=== PATIENT | male | born 1955 | race Hispanic/Latino ===

== ENCOUNTER 2021-06-17 06:51 | Day surgery (SDC) | payer MEDICARE ==
[2021-06-12 13:31] LABS: BASOPHILS % (AUTO) 0.5 % (0.0-5.0); EOSINOPHILS % (AUTO) 5.7 % (0.0-8.0); HEMATOCRIT 40.9 % (42-54); LYMPHOCYTES % (AUTO) 22.9 % (21.0-51.0); MEAN CORPUSCULAR HEMOGLOBIN 30.9 pg (27.0-33.0); MEAN CORPUSCULAR HGB CONC 31.3 g/dL (32.0-36.0); MEAN CORPUSCULAR VOLUME 98.8 fL (79-99); MONOCYTES % (AUTO) 9.3 % (3.0-13.0); NEUTROPHILS % (AUTO) 61.3 % (40.0-77.0); PLATELET COUNT (AUTO) 244 K/uL (130-400); RED BLOOD CELL COUNT(AUTO) 4.14 MIL/uL (4.50-6.20); RED CELL DISTRIBUTION WIDTH 14.6 % (11.0-15.5); WHITE BLOOD COUNT (AUTO) 6.1 K/uL (4.8-10.8)
[2021-06-12 13:38] LABS: CREATININE 1.3 mg/dL (0.5-1.5); POTASSIUM 4.9 mmol/L (3.5-5.1)
[2021-06-12 14:08] LABS: APPEARANCE,URINE Clear (CLEAR); BILIRUBIN,URINE Moderate (NEGATIVE); COLOR,URINE Dark Yellow (YELLOW); GLUCOSE, URINE (UA) Negative (NEGATIVE); KETONES,URINE Trace mg/dL (NEGATIVE); LEUKOCYTE ESTERASE ,URINE Moderate (NEGATIVE); NITRATE,URINE Negative (NEGATIVE); OCCULT BLOOD,URINE Negative (NEGATIVE); PH,URINE 7.5 (5.0-8.0); PROTEIN,URINE POS 1+ mg/dL (NEGATIVE)
[2021-06-12 14:13] LABS: INR 0.97 (0.85-1.15); PROTHROMBIN TIME 10.6 SEC (9.6-11.6)
[2021-06-12 14:18] LABS: BACTERIA,URINE Rare /HPF (None Seen); MUCUS,URINE Rare LPF (None Seen); RBC,URINE 0-1 /HPF (0-1); SQUAMOUS EPITHELIAL CELL,UR Rare /HPF (0-2)
[2021-06-16 08:36] VITALS: BP 150/65
[~2021-06-17] VITALS: Ht 172.7 cm; Wt 97.2 kg
[2021-06-17] VITALS (11 sets, daily range): BP systolic 128–154; BP diastolic 54–68
[~2021-06-17 06:51] MED LIST: 0.9% NACL 500ML IV.SOLN 500 ML IV SCH; AEC81 PO; ALBU0.63 IH; AMLO-257 PO; CITA-107 PO; FLUT1AER IH; FOLI20CA PO; GABA-529 PO; LISI20TA24 PO; LORA-192 PO; METO-408 PO; MULT-1367 PO; NITR0.4T50 SL; OMEG-148 PO; OMEP40CA21 PO; PRAV40TA3 PO; RANITIDINE PO; RANO10005 PO; TRAM50TA4 PO; UMEC1DIS IH
[2021-06-17] MEDS ORDERED: 0.9%NACL 1000ML 1,000 ML IV ONE (08:33)
[2021-06-17] MEDS ORDERED: HEPARIN 10,000 UNIT/10ML (1,000 UNIT/ML) VIAL ONE (11:53)
[2021-06-17] MEDS ORDERED: LIDOCAINE HCL 400MG/20ML VIAL ONE (11:53)
[2021-06-17] MEDS ORDERED: IOHEXOL-350 50ML VIAL IV ONE (11:53)
[2021-06-17] MEDS ORDERED: IOHEXOL 350 MG/ML 100ML INFUS..BTL IV ONE (11:53)
[2021-06-17] MEDS ORDERED: BIVALIRUDIN 250 MG/VIAL IV ONE (11:53)
[2021-06-17] MEDS ORDERED: NITROGLYCERIN 50MG VIAL IV ONE (11:53)
[2021-06-17] MEDS ORDERED: MIDAZOLAM HCL 1 MG/ML 2ML VIAL ONE (11:58)
[2021-06-17] MEDS ORDERED: GLUCAGON 1MG KIT 1 MG ML IM PRN (13:00)
[2021-06-17] MEDS ORDERED: DEXTROSE 50%-WATER 50 ML DISP.SYRIN IV PRN (13:00)
== END 2021-06-17 16:40 | disposition home or self-care (01) ==
LOC: DAH 06:51
PROVIDERS: ATTEND Internal Medicine Cardiovascular Disease
DX: I25.118 Atherosclerotic heart disease of native coronary artery with other forms of angina pectoris (principal); I10 Essential (primary) hypertension; E78.5 Hyperlipidemia, unspecified; E11.9 Type 2 diabetes mellitus without complications; J44.9 Chronic obstructive pulmonary disease, unspecified; Z95.5 Presence of coronary angioplasty implant and graft; Z79.84 Long term (current) use of oral hypoglycemic drugs; Z79.01 Long term (current) use of anticoagulants; Z79.899 Other long term (current) drug therapy
CPT/HCPCS: 36415; 71045; 80048; 81001; 82948; 85025; 85610; 85730; 87088; 93005; 93458; A4215 ×2; A4216; A4221; A4222; A4223 ×3; A4606; A4663; C1760; C1894; J1644; J3490 ×2; J7030 ×2; Q9965; Q9967; J0583; J2250

== ENCOUNTER → 2021-11-18 | Outpatient (CLI) | payer MEDICARE ==
[~2021-11-18] MED LIST changes: -0.9% NACL 500ML IV.SOLN 500 ML IV SCH
== END ==
LOC: RAH 08:59
PROVIDERS: ATTEND Internal Medicine Gastroenterology
DX: R63.30 Feeding difficulties, unspecified (principal); R13.12 Dysphagia, oropharyngeal phase
CPT/HCPCS: 74230; 92611

== ENCOUNTER 2022-03-11 09:37 | Observation (INO) | payer MEDICARE ==
[~2022-03-11] VITALS: Ht 172.7 cm; Wt 94.3 kg
[2022-03-11 10:13] LABS: BASOPHILS % (AUTO) 0.2 % (0.0-5.0); EOSINOPHILS % (AUTO) 3.1 % (0.0-8.0); HEMATOCRIT 35.5 % (42-54); MEAN CORPUSCULAR HEMOGLOBIN 29.3 pg (27.0-33.0); MONOCYTES % (AUTO) 6.8 % (3.0-13.0); NEUTROPHILS % (AUTO) 68.2 % (40.0-77.0); PLATELET COUNT (AUTO) 251 K/uL (130-400); RED BLOOD CELL COUNT(AUTO) 3.99 MIL/uL (4.50-6.20); RED CELL DISTRIBUTION WIDTH 14.8 % (11.0-15.5); WHITE BLOOD COUNT (AUTO) 5.9 K/uL (4.8-10.8)
[2022-03-11 10:26] LABS: CREATININE 1.1 mg/dL (0.5-1.5); POTASSIUM 3.9 mmol/L (3.5-5.1)
[2022-03-11 10:31] LABS: ALBUMIN 3.3 g/dL (3.5-5.0); TOTAL PROTEIN, SERUM 7.5 g/dL (6.0-8.3)
[2022-03-11] MEDS ORDERED: ASPIRIN 81MG CHEW TAB PO ONE (11:00)
[2022-03-11] MEDS ORDERED: NITROGLYCERIN 1GM OINT 1 INCH/1GM TD ONE (11:00)
[2022-03-11 14:18] LABS: APPEARANCE,URINE CLEAR (CLEAR); BILIRUBIN,URINE SMALL (NEGATIVE); COLOR,URINE YELLOW (YELLOW); GLUCOSE, URINE (UA) NEGATIVE (NEGATIVE); KETONES,URINE 5 mg/dL (NEGATIVE); LEUKOCYTE ESTERASE ,URINE NEGATIVE (NEGATIVE); NITRATE,URINE NEGATIVE (NEGATIVE); OCCULT BLOOD,URINE NEGATIVE (NEGATIVE); PH,URINE 7.5 (5.0-8.0); PROTEIN,URINE NEGATIVE (NEGATIVE)
[2022-03-11] MEDS ORDERED: MORPHINE 2 MG SYG IV PRN (14:30)
[2022-03-11] MEDS ORDERED: ACETAMINOPHEN 325 MG TAB PO PRN (14:30)
[2022-03-11] MEDS ORDERED: LACTULOSE 20 GM/30 ML UDCUP PO PRN (14:30)
[2022-03-11] MEDS ORDERED: ONDANSETRON 4MG INJ IV PRN (14:30)
[2022-03-11 14:53] LABS: BACTERIA,URINE Rare /HPF (None Seen); MUCUS,URINE Few LPF (None Seen); RBC,URINE 0-1 /HPF (0-1); SQUAMOUS EPITHELIAL CELL,UR Rare /HPF (0-2); WBC,URINE 0-1 /HPF (0-1)
[2022-03-11] MEDS: CLOPIDOGREL 75MG TAB PO SCH (15:07)
[2022-03-11] MEDS: NITROGLYCERIN 1GM OINT 1 INCH/1GM TD SCH ×2 (15:07→21:47)
[2022-03-11] MEDS ORDERED: PANT40TA54 PO (16:05)
[2022-03-11 18:45] VITALS: BP 143/59
[2022-03-11 19:01] VITALS: BP 131/59
[2022-03-11] MEDS ORDERED: FAMOTIDINE 20MG VIAL IV SCH (21:00)
[2022-03-11] MEDS: FAMOTIDINE 20MG TAB PO SCH (21:44)
[2022-03-11] MEDS: ENOXAPARIN SODIUM 100 MG/1 ML SQ SCH (21:47)
[2022-03-11 23:19] VITALS: BP 133/59
[2022-03-12 03:54] VITALS: BP 115/57
[2022-03-12] MEDS: NITROGLYCERIN 1GM OINT 1 INCH/1GM TD SCH (06:35)
[2022-03-12 06:54] VITALS: BP 115/66
[2022-03-12] MEDS ORDERED: NITROGLYCERIN 0.4 MG SL TAB SL PRN (08:00)
[2022-03-12] MEDS ORDERED: NITROGLYCERIN 1GM OINT 1 INCH/1GM TD SCH (08:00)
[2022-03-12] MEDS ORDERED: BISA5TAB12 PO (08:10)
[2022-03-12] MEDS: CLOPIDOGREL 75MG TAB PO SCH (08:38)
[2022-03-12] MEDS: FAMOTIDINE 20MG TAB PO SCH (08:41)
[2022-03-12] MEDS: ENOXAPARIN SODIUM 100 MG/1 ML SQ SCH (08:42)
[2022-03-12] MEDS ORDERED: AMLODIPINE 5 MG TAB PO SCH (09:00)
[2022-03-12] MEDS ORDERED: FOLIC ACID 1 MG TABLET PO SCH (09:00)
[2022-03-12] MEDS ORDERED: TRAMADOL HCL 50 MG TABLET PO SCH (09:00)
[2022-03-12] MEDS ORDERED: MULTIVITAMIN TABLET PO SCH (09:00)
[2022-03-12] MEDS ORDERED: ASPIRIN 81MG CHEW TAB PO SCH (09:00)
[2022-03-12] MEDS ORDERED: GABAPENTIN 300 MG CAPSULE PO SCH (09:00)
[2022-03-12] MEDS ORDERED: PANTOPRAZOLE 40 MG TAB DR PO SCH (09:00)
[2022-03-12] MEDS ORDERED: FISH OIL 1000 MG/CAP PO SCH (09:00)
[2022-03-12] MEDS ORDERED: LISINOPRIL 20 MG TABLET PO SCH (09:00)
[2022-03-12] MEDS ORDERED: RANOLAZINE 500 MG TAB.SR.12H PO SCH (09:00)
[2022-03-12] MEDS ORDERED: METOPROLOL SUCCINATE 25 MG TAB.SR.24H PO SCH (21:00)
[2022-03-12] MEDS ORDERED: ATORVASTATIN 10 MG TABLET PO SCH (21:00)
[2022-03-12] MEDS ORDERED: CITALOPRAM 20 MG TABLET PO SCH (21:00)
[2022-03-12] MEDS ORDERED: LORAZEPAM 1 MG TABLET PO SCH (21:00)
== END 2022-03-12 09:03 | disposition home or self-care (01) ==
LOC: EDH 09:37 → EDHIP 14:30 → 2AH 18:10
PROVIDERS: ADMIT Internal Medicine; ATTEND Internal Medicine
DX: R07.89 Other chest pain (principal); Z20.822 Contact with and (suspected) exposure to COVID-19; E11.9 Type 2 diabetes mellitus without complications; I10 Essential (primary) hypertension; E78.5 Hyperlipidemia, unspecified; I25.10 Atherosclerotic heart disease of native coronary artery without angina pectoris; J45.909 Unspecified asthma, uncomplicated; F17.200 Nicotine dependence, unspecified, uncomplicated; Z79.899 Other long term (current) drug therapy; Z79.82 Long term (current) use of aspirin; Z95.5 Presence of coronary angioplasty implant and graft
CPT/HCPCS: 96372 ×2; 99285; 82550 ×3; 83874 ×3; 84484 ×4; 80053; 85025; 81001; 36415 ×2; 87635; 71045; 93005 ×3; 94660 ×2; G0378 ×18; C9803; J1650 ×2